=== PATIENT | male | born 1960 | race Asian ===

== ENCOUNTER 2020-07-01 22:43 | Emergency (ER) | payer MEDICAID ==
[~2020-07-01] VITALS: Ht 167.6 cm; Wt 61.4 kg
[2020-07-01 23:09] LABS: APPEARANCE,URINE CLEAR (CLEAR); BILIRUBIN,URINE NEGATIVE (NEGATIVE); GLUCOSE, URINE (UA) >=1000 mg/dL (NEGATIVE); KETONES,URINE NEGATIVE (NEGATIVE); LEUKOCYTE ESTERASE ,URINE NEGATIVE (NEGATIVE); NITRATE,URINE NEGATIVE (NEGATIVE); OCCULT BLOOD,URINE NEGATIVE (NEGATIVE); PH,URINE 5.5 (5.0-8.0); PROTEIN,URINE NEGATIVE (NEGATIVE); UROBILINOGEN,URINE 0.2 mg/dL (<=1.0)
[2020-07-01 23:17] LABS: BACTERIA,URINE None Seen /HPF (None Seen); RBC,URINE None Seen /HPF (0-2); WBC,URINE 0-2 /HPF (0-5); YEAST,URINE Moderate /HPF (None Seen)
[2020-07-02] MEDS ORDERED: SODIUM CHLORIDE 0.9% 1,000 ML IV ONE ×2 (01:30→03:45)
[2020-07-02] MEDS ORDERED: FLUCONAZOLE 150 MG TABLET PO ONE (01:30)
[2020-07-02 03:34] LABS: GLUCOSE,POINT OF CARE 386 MG/DL (70-110)
[2020-07-02] MEDS ORDERED: LOSA25TA21 PO (03:46)
[2020-07-02] MEDS ORDERED: METF-960 PO (03:46)
[2020-07-02] MEDS ORDERED: MetFORMIN HCL 500 MG TABLET PO ONE (04:00)
[2020-07-02] MEDS ORDERED: FLUCONAZOLE 100 MG TABLET PO ONE (04:00)
[2020-07-02 04:39] LABS: GLUCOSE,POINT OF CARE 321 MG/DL (70-110)
[2020-07-02 05:22] LABS: GLUCOSE,POINT OF CARE 282 MG/DL (70-110)
[2020-07-02 05:30] VITALS: BP 126/75
[2020-07-02 11:40] LABS: HEMATOCRIT 31.5 % (41-53); HEMOGLOBIN 9.9 g/dL (13.5-17.5); MEAN CORPUSCULAR VOLUME 90 fL (80-100); RED BLOOD CELL COUNT(AUTO) 3.51 MIL/uL (4.50-5.90)
[2020-07-02 11:41] LABS: BASOPHILS # (AUTO) 0.06 K/uL (0.00-0.20); BASOPHILS % (AUTO) 0.7 % (0.0-2.0); EOSINOPHILS # (AUTO) 0.07 K/uL (0.00-0.70); EOSINOPHILS % (AUTO) 0.8 % (1.0-6.0); LYMPHOCYTES # (AUTO) 0.9 K/uL (1.0-4.8); LYMPHOCYTES % (AUTO) 9.6 % (22.0-44.0); MEAN CORPUSCULAR HEMOGLOBIN 28.2 pg (26.0-34.0); MEAN CORPUSCULAR HGB CONC 31.4 G/dL (31.0-37.0); MONOCYTES # (AUTO) 0.4 K/uL (0.1-1.0); MONOCYTES % (AUTO) 4.2 % (2.0-9.0); NEUTROPHILS # (AUTO) 7.6 K/uL (1.8-7.7); PLATELET COUNT (AUTO) 495 K/uL (150-450); RED CELL DISTRIBUTION WIDTH 15.1 % (11.5-14.5)
[2020-07-02 11:42] LABS: POTASSIUM 4.4 mmol/L (3.5-5.1)
[2020-07-02 11:44] LABS: BILIRUBIN,TOTAL 0.4 mg/dL (0.1-1.0); CREATININE 1.54 mg/dL (0.60-1.30)
[2020-07-02 11:45] LABS: ALBUMIN 2.9 g/dL (3.4-5.0); TOTAL PROTEIN, SERUM 8.9 g/dL (6.4-8.2)
== END 2020-07-02 05:47 | disposition home or self-care (01) ==
LOC: EMS 22:43
DX: B37.49 Other urogenital candidiasis (principal); E11.65 Type 2 diabetes mellitus with hyperglycemia; D47.3 Essential (hemorrhagic) thrombocythemia; R79.89 Other specified abnormal findings of blood chemistry; R74.01 Elevation of levels of liver transaminase levels; I10 Essential (primary) hypertension
CPT/HCPCS: 87086; 96360; 96361; 99285; 36415-L1; 36415-TC

== ENCOUNTER 2020-07-04 14:28 | Emergency (ER) | payer MEDICAID ==
[~2020-07-04] VITALS: Ht 162.6 cm; Wt 52.3 kg
[~2020-07-04 14:28] MED LIST: LOSA25TA21 PO; METF-960 PO
[2020-07-04] MEDS ORDERED: FLUC100T PO (14:37)
[2020-07-04 14:45] LABS: GLUCOSE,POINT OF CARE 200 MG/DL (70-110)
[2020-07-04] MEDS ORDERED: ASPI-1450 PO (16:29)
[2020-07-04] MEDS ORDERED: ACETAMINOPHEN 325 MG TABLET PO ONE (16:45)
[2020-07-04 18:07] VITALS: BP 128/82
== END 2020-07-04 19:04 | disposition home or self-care (01) ==
LOC: EMS 14:31
DX: E11.9 Type 2 diabetes mellitus without complications (principal); I10 Essential (primary) hypertension
CPT/HCPCS: 99282

== ENCOUNTER 2020-07-12 17:14 | Emergency (ER) | payer MEDICAID ==
[~2020-07-12] VITALS: Ht 162.6 cm; Wt 52.0 kg
[~2020-07-12 17:14] MED LIST changes: +ASPI-1450 PO; +FLUC100T PO
[2020-07-12] MEDS ORDERED: SODIUM CHLORIDE 0.9% 1,000 ML IV ONE ×2 (18:00→20:00)
[2020-07-12] MEDS ORDERED: ACETAMINOPHEN 1000 MG/ISO-OSM 100 ML IV ONE (18:00)
[2020-07-12] MEDS ORDERED: VANCOMYCIN HCL 1 GM/D5% WATER 200 ML IV ONE (18:15)
[2020-07-12] MEDS ORDERED: CefTRIAXone SODIUM 2 GM in DEXTROSE 5%-WATER 50 ML IV ONE (18:15)
[2020-07-12] MEDS ORDERED: AMPICILLIN SODIUM 2 GM/NS 100 ML IV ONE (18:15)
[2020-07-12] MEDS ORDERED: LIDOCAINE 1% 10 ML VIAL SQ ONE (18:30)
[2020-07-12 19:08] LABS: BASOPHILS % (AUTO) 0.9 % (0.0-2.0); EOSINOPHILS % (AUTO) 1.3 % (1.0-6.0); HEMATOCRIT 29.3 % (41-53); HEMOGLOBIN 9.6 g/dL (13.5-17.5); LYMPHOCYTES # (AUTO) 1.2 K/uL (1.0-4.8); LYMPHOCYTES % (AUTO) 10.9 % (22.0-44.0); MEAN CORPUSCULAR HEMOGLOBIN 27.9 pg (26.0-34.0); MEAN CORPUSCULAR HGB CONC 32.8 G/dL (31.0-37.0); MEAN CORPUSCULAR VOLUME 85 fL (80-100); MONOCYTES # (AUTO) 0.5 K/uL (0.1-1.0); MONOCYTES % (AUTO) 4.9 % (2.0-9.0); NEUTROPHILS # (AUTO) 8.7 K/uL (1.8-7.7); PLATELET COUNT (AUTO) 417 K/uL (150-450); RED BLOOD CELL COUNT(AUTO) 3.44 MIL/uL (4.50-5.90); RED CELL DISTRIBUTION WIDTH 16.2 % (11.5-14.5)
[2020-07-12 19:26] LABS: ANION GAP 9 mmol/L (8-16); CARBON DIOXIDE 26 mmol/L (22-29); CHLORIDE 101 mmol/L (98-107); CREATININE 0.95 mg/dL (0.60-1.30); GLOMERULAR FILTR. RATE CALC > 60 mL/min (>60); GLUCOSE,RANDOM 241 mg/dL (70-110); POTASSIUM 4.2 mmol/L (3.5-5.1); SODIUM SERUM 136 mmol/L (136-145); UREA NITROGEN, BLOOD 14 mg/dL (7-18)
[2020-07-12 19:28] LABS: PROTHROMBIN TIME 10.8 SEC (9.4-11.6)
[2020-07-12 19:33] LABS: ALANINE AMINOTRANSFERASE 11 U/L (12-78); ALBUMIN 2.8 g/dL (3.4-5.0); ALKALINE PHOSPHATASE 91 U/L (46-116); ASPARTATE AMINOTRANSFERASE 10 U/L (15-37); BILIRUBIN,TOTAL 0.6 mg/dL (0.1-1.0); CREATINE KINASE, TOTAL ONLY 17 U/L (39-308); TOTAL PROTEIN, SERUM 7.7 g/dL (6.4-8.2)
[2020-07-12] MEDS ORDERED: PHENYLEPHRINE HCL IN 0.9% NACL 400 MCG/10 ML SYRINGE IVP ONE (19:36)
[2020-07-12] MEDS ORDERED: NOREPINEPHRINE 4 MG/D5%-WATER 250 ML IV ONE (19:36)
[2020-07-12 19:53] LABS: B-TYPE NATRIURETIC PEPTIDE 8 pg/mL (0-100)
[2020-07-12] MEDS ORDERED: DEXAMETHASONE SOD PHOS 4 MG/ML VIAL ONE (20:13)
[2020-07-12] MEDS ORDERED: DEXAMETHASONE SOD PHOS 4 MG/ML 5 ML VIAL IVP ONE (20:45)
[2020-07-12] MEDS ORDERED: PIPERACILLIN/TAZO 3.375 GM/D5W 50 ML IV ONE (20:45)
[2020-07-12] MEDS ORDERED: GADOTERATE MEGLUMINE 10 MMOL/20 ML VIAL IVP ONE (21:00)
[2020-07-12] MEDS ORDERED: MetroNIDAZOLE 500 MG/NACL 100 ML IV ONE (21:00)
[2020-07-12] MEDS ORDERED: ONDANSETRON HCL 4 MG/2 ML VIAL IVP ONE (21:15)
[2020-07-12] MEDS ORDERED: MORPHINE SULFATE 2 MG/ML SYRINGE IVP PRN (22:30)
[2020-07-12] MEDS ORDERED: MAGNESIUM HYDROXIDE SUSPENSION 30 ML UDCUP PO PRN (22:30)
[2020-07-12] MEDS ORDERED: ONDANSETRON HCL 4 MG/2 ML VIAL IVP PRN (22:30)
[2020-07-12] MEDS ORDERED: ACETAMINOPHEN 325 MG TABLET PO PRN (22:30)
[2020-07-12] MEDS ORDERED: ZOLPIDEM TARTRATE 5 MG TABLET PO PRN (22:30)
[2020-07-12] MEDS ORDERED: BISACODYL 10 MG RECTAL RECTAL SUPPOSITORY PR PRN (22:30)
[2020-07-12] MEDS ORDERED: HYDROCODONE/ACETAMINOPHEN 5-325 MG TABLET PO PRN (22:30)
[2020-07-12 23:22] LABS: BASOPHILS % (AUTO) 0.7 % (0.0-2.0); EOSINOPHILS % (AUTO) 0.2 % (1.0-6.0); HEMATOCRIT 32.3 % (41-53); HEMOGLOBIN 10.3 g/dL (13.5-17.5); LYMPHOCYTES # (AUTO) 0.6 K/uL (1.0-4.8); LYMPHOCYTES % (AUTO) 6.4 % (22.0-44.0); MEAN CORPUSCULAR HEMOGLOBIN 28.1 pg (26.0-34.0); MEAN CORPUSCULAR HGB CONC 32.1 G/dL (31.0-37.0); MEAN CORPUSCULAR VOLUME 88 fL (80-100); MONOCYTES # (AUTO) 0.1 K/uL (0.1-1.0); MONOCYTES % (AUTO) 1.4 % (2.0-9.0); NEUTROPHILS # (AUTO) 9.1 K/uL (1.8-7.7); NEUTROPHILS % (AUTO) 91.3 % (40.0-70.0); PLATELET COUNT (AUTO) 401 K/uL (150-450); RED BLOOD CELL COUNT(AUTO) 3.68 MIL/uL (4.50-5.90); RED CELL DISTRIBUTION WIDTH 16.1 % (11.5-14.5)
[2020-07-12 23:31] LABS: ANION GAP 12 mmol/L (8-16); CALCIUM, TOTAL 8.7 mg/dL (8.8-10.5); CARBON DIOXIDE 24 mmol/L (22-29); CHLORIDE 100 mmol/L (98-107); CREATININE 0.97 mg/dL (0.60-1.30); GLOMERULAR FILTR. RATE CALC > 60 mL/min (>60); GLUCOSE,RANDOM 349 mg/dL (70-110); POTASSIUM 4.8 mmol/L (3.5-5.1); SODIUM SERUM 136 mmol/L (136-145); UREA NITROGEN, BLOOD 14 mg/dL (7-18)
[2020-07-12 23:46] LABS: B-TYPE NATRIURETIC PEPTIDE 24 pg/mL (0-100)
[2020-07-13] MEDS: HEPARIN SODIUM,PORCINE 5,000 UNITS/ML VIAL SQ SCH ×2 (00:48)
[2020-07-13 01:01] LABS: COVID AG,FIA SOURCE NASOPHARYNGEAL
[2020-07-13 01:43] LABS: APPEARANCE,URINE CLEAR (CLEAR); BILIRUBIN,URINE NEGATIVE (NEGATIVE); GLUCOSE, URINE (UA) >=1000 mg/dL (NEGATIVE); KETONES,URINE NEGATIVE (NEGATIVE); LEUKOCYTE ESTERASE ,URINE NEGATIVE (NEGATIVE); NITRATE,URINE NEGATIVE (NEGATIVE); OCCULT BLOOD,URINE NEGATIVE (NEGATIVE); PROTEIN,URINE TRACE (NEGATIVE); UROBILINOGEN,URINE 0.2 mg/dL (<=1.0)
[2020-07-13] MEDS ORDERED: HEPARIN SODIUM 1000 UNITS/NS 500 ML ONE (01:58)
[2020-07-13] MEDS ORDERED: SODIUM CHLORIDE 0.9% 500 ML IV ONE (01:58)
[2020-07-13 02:07] LABS: BACTERIA,URINE None Seen /HPF (None Seen); RBC,URINE 0-2 /HPF (0-2); WBC,URINE 0-2 /HPF (0-5)
[2020-07-13 02:08] LABS: SQUAMOUS EPITHELIAL CELL,UR None Seen /LPF (None Seen)
[2020-07-13 03:26] VITALS: BP 154/64
[2020-07-13] MEDS ORDERED: FentaNYL CITRATE PF 100 MCG/2 ML VIAL IVP ONE (03:30)
[2020-07-13] MEDS ORDERED: MetFORMIN HCL 500 MG TABLET PO SCH (08:00)
[2020-07-13] MEDS ORDERED: ASPIRIN 81 MG CHEWABLE TABLET PO SCH (09:00)
[2020-07-13] MEDS ORDERED: PANTOPRAZOLE SODIUM 40 MG DR TABLET PO SCH (09:00)
[2020-07-13] MEDS ORDERED: LOSARTAN POTASSIUM 25 MG TABLET PO SCH (09:00)
[2020-07-13] MEDS ORDERED: DOCUSATE SODIUM 100 MG CAPSULE PO SCH (09:00)
[2020-07-13] MEDS ORDERED: VANCOMYCIN HCL 750 MG in DEXTROSE 5%-WATER 250 ML IV SCH (10:00)
== END 2020-07-13 04:30 | disposition designated cancer center or children's hospital (05) ==
LOC: EMS 17:15
DX: S12.110A Anterior displaced Type II dens fracture, initial encounter for closed fracture (principal); Y99.8 Other external cause status; X58.XXXA Exposure to other specified factors, initial encounter; Y93.89 Activity, other specified; Y92.89 Other specified places as the place of occurrence of the external cause; Z20.822 Contact with and (suspected) exposure to COVID-19
CPT/HCPCS: 36415; 62270; 70450; 70551; 71045; 72156; 80053; 81001; 82550; 83605; 83880; 84484; 85025; 85610; 85730; 87040; 87426; 93005; 96361; 96365; 96366; 96367; 96368; 96375 ×2; 99291; 99292; A9575; J0131; J0290; J0696; J1100 ×2; J1644 ×2; J2405; J2543; J3010; J3370; J3490 ×2; J7030; J7040; J7060; U0003; 99285